=== PATIENT | female | born 1960 | race Caucasian/White ===

== ENCOUNTER 2021-05-01 13:49 | Emergency (ER) | payer MEDICARE ==
[~2021-05-01] VITALS: Ht 165.1 cm; Wt 87.3 kg
[~2021-05-01 13:49] MED LIST: LEVO75TA7 PO; NITR100C PO; ONDA8TAB6 PO
[2021-05-01 13:56] VITALS: BP 132/80
== END 2021-05-01 21:20 | disposition left against medical advice (07) ==
LOC: ER 13:50
DX: R68.84 Jaw pain (principal); Z53.21 Procedure and treatment not carried out due to patient leaving prior to being seen by health care provider